=== PATIENT | female | born 1985 | race Caucasian/White ===

== ENCOUNTER 2016-12-12 14:40 | Emergency (ER) | payer OTHER ==
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
[~2016-12-12 14:40] MED LIST: IMODIUM MS REL1 EAC1 PO
[2017-02-26] MEDS ORDERED: TRAMADOL HCL50 M1 PO (09:35)
[2017-02-26] MEDS ORDERED: ONDANSETRON ODT4 MG PO (09:35)
[2017-02-26] MEDS ORDERED: CARAFATE PO (09:36)
[2017-02-26] MEDS ORDERED: PANTOPRAZOLE SO40 MG PO (10:20)
== END 2016-12-12 16:05 | disposition home or self-care (01) ==
LOC: CFTX 14:40
DX: S02.2XXA Fracture of nasal bones, initial encounter for closed fracture (principal); S16.1XXA Strain of muscle, fascia and tendon at neck level, initial encounter; F41.9 Anxiety disorder, unspecified; F17.200 Nicotine dependence, unspecified, uncomplicated; W22.8XXA Striking against or struck by other objects, initial encounter; Y92.009 Unspecified place in unspecified non-institutional (private) residence as the place of occurrence of the external cause
CPT/HCPCS: 70486; 72040; 84703; 99284

== ENCOUNTER 2017-01-04 17:13 | Emergency (ER) | payer OTHER ==
--- NOTE | ~2017-01-04 | CR20 ---
[facility] A Service of [facility] RADIOLOGY TEXT RESULTS PATIENT: ZULEYMA HERNANDEZ LOCATION: [facility] : 85 UNIT #: [id number] AGE: [address]: Anna Doan APRN SEX: F ORDER DR: [id number] [facility] [address] [place], [place] [address] [id number] E MR#: [id number] Acc #: [id number] NAME: ZULEYMA HERNANDEZ : 1985 SEX: F STUDY DATE/TIME: 01/04/2017 17:27 UNIT: [place] ROOM: STUDY DESCRIPTION: CR Ankle Min 3 Views Lt Attending Physician: Anna Doan A.P.R.N. Ordering Physician: Ed Doctor [id number] [facility] Primary Care Physician: Primary Care Physician No MEDICAL IMAGING REPORT This report is preliminary unless electronic signature is present EXAM Left ankle 3 views HISTORY Pain, swelling. Fell through porch steps. COMPARISON Left ankle films 07/17/2016 FINDINGS Three views of the left ankle demonstrates no acute fracture or dislocation. No significant arthritic or inflammatory change. Benign eccentric bone lesion is seen in the posterior lateral aspect of the distal tibia, unchanged from prior studies probably represents fibrous cortical defect. There is soft tissue swelling anterior aspect of the lower leg. IMPRESSION 1. Soft tissue swelling. No visible fracture. 2. Stable benign appearing bone lesion distal tibia probably represents old fibrous cortical defect. Dictated by... Mary Solis M.D. THIS IS AN ELECTRONICALLY VERIFIED REPORT Mary Solis M.D. at 01/05/2017 10:05 AM PEDRO/hillary TD: 01/05/2017 08:40 JOB #: [id number] [facility] A Service [facility] RADIOLOGY TEXT RESULTS PATIENT: ZULEYMA HERNANDEZ LOCATION: [facility] : 85 UNIT #: [id number] AGE: [address]: Anna Doan APRN SEX: F ORDER DR: MEDICAL IMAGING REPORT Page 1 of 1 COPY
--- NOTE | ~2017-01-04 | CR126 ---
[facility] A Service of [facility] RADIOLOGY TEXT RESULTS PATIENT: ZULEYMA HERNANDEZ LOCATION: [facility] : 85 UNIT #: [id number] AGE: [address]: Anna Doan APRN SEX: F ORDER DR: [id number] [facility] [address] [place], [place] [address] [id number] E MR#: [id number] Acc #: [id number] NAME: ZULEYMA HERNANDEZ : 1985 SEX: F STUDY DATE/TIME: 01/04/2017 17:29 UNIT: [facility] ROOM: STUDY DESCRIPTION: CR Foot Complete Min 3 View Lt Attending Physician: Anna Doan A.P.R.N. Ordering Physician: Laron Washington M.D. Primary Care Physician: Primary Care Physician No MEDICAL IMAGING REPORT This report is preliminary unless electronic signature is present EXAM Left foot 3 views HISTORY Foot pain and swelling and numbness after injury and fall today. FINDINGS 3 views of the left foot demonstrate satisfactory bone alignment. No fracture, joint space narrowing or dislocation. No opaque soft tissue foreign body. Well-marginated benign-appearing sclerotic lesion along the lateral margin of the distal tibial metaphysis is stable compared to 07/17/2016 and appears benign. IMPRESSION No acute finding. No fracture. Dictated by... Nahum Castelan M.D. THIS IS AN ELECTRONICALLY VERIFIED REPORT Nahum Castelan M.D. at 01/05/2017 3:03 PM ARACELI/pily TD: 01/05/2017 08:57 JOB #: [id number] MEDICAL IMAGING REPORT Page 1 of 1 COPY
[2017-02-26] MEDS ORDERED: TRAMADOL HCL50 M1 PO (09:35)
[2017-02-26] MEDS ORDERED: ONDANSETRON ODT4 MG PO (09:35)
[2017-02-26] MEDS ORDERED: CARAFATE PO (09:36)
[2017-02-26] MEDS ORDERED: PANTOPRAZOLE SO40 MG PO (10:20)
== END 2017-01-04 18:41 | disposition home or self-care (01) ==
LOC: CED 17:13
DX: S93.402A Sprain of unspecified ligament of left ankle, initial encounter (principal); S93.602A Unspecified sprain of left foot, initial encounter; F41.9 Anxiety disorder, unspecified; F17.210 Nicotine dependence, cigarettes, uncomplicated; W13.8XXA Fall from, out of or through other building or structure, initial encounter; Y92.009 Unspecified place in unspecified non-institutional (private) residence as the place of occurrence of the external cause
CPT/HCPCS: 29540; 73610; 73630; 99283

== ENCOUNTER 2017-01-24 12:36 | Emergency (ER) | payer OTHER ==
--- NOTE | ~2017-01-24 | CR63 ---
[facility] A Service of [facility] & [facility] RADIOLOGY TEXT RESULTS PATIENT: ZULEYMA HERNANDEZ LOCATION: [facility] : 85 UNIT #: [id number] AGE: [address]: Rohit Gage SEX: F ORDER DR: [id number] [facility] [address] [place], [place] [address] [id number] E MR#: [id number] Acc #: [id number] NAME: ZULEYMA HERNANDEZ : 1985 SEX: F STUDY DATE/TIME: 01/24/2017 12:45 UNIT: [facility] ROOM: STUDY DESCRIPTION: CR Chest 2 View Attending Physician: Rohit Gage Ordering Physician: Rohit Gage Primary Care Physician: Primary Care Physician No MEDICAL IMAGING REPORT This report is preliminary unless electronic signature is present EXAM 2 view chest 01/24/2017 HISTORY Chest pain status post fall last night. COMPARISON Chest 11/08/2016. FINDINGS 2 views of the chest demonstrate clear lungs. No pleural effusion or pneumothorax. Heart size and mediastinum are normal. Pulmonary vasculature normal. IMPRESSION No acute cardiopulmonary findings. Dictated by... Andre Alexander M.D. THIS IS AN ELECTRONICALLY VERIFIED REPORT Andre Alexander M.D. at 01/25/2017 9:07 AM SUMAYA/pily TD: 01/25/2017 08:11 JOB #: [id number] MEDICAL IMAGING REPORT Page 1 of 1 COPY
--- NOTE | ~2017-01-24 | CR169 ---
[facility] A Service of [facility] RADIOLOGY TEXT RESULTS PATIENT: ZULEYMA HERNANDEZ LOCATION: [facility] : 85 UNIT #: [id number] AGE: [address]: Rohit Gage SEX: F ORDER DR: [id number] [facility] [address] [place], [place] [address] [id number] E MR#: [id number] Acc #: [id number] NAME: ZULEYMA HERNANDEZ : 1985 SEX: F STUDY DATE/TIME: 01/24/2017 12:45 UNIT: [facility] ROOM: STUDY DESCRIPTION: CR Knee 2 Views Lt Attending Physician: Rohit Gage Ordering Physician: Rohit Gage Primary Care Physician: Primary Care Physician No MEDICAL IMAGING REPORT This report is preliminary unless electronic signature is present EXAM Left knee 01/24/2017 HISTORY Left knee pain status post fall last night. COMPARISON None. FINDINGS 2 views of the left knee demonstrate no acute fracture or dislocation. No joint effusion. Joint spaces are normal. Soft tissues are unremarkable. IMPRESSION Negative left knee. Dictated by... Andre Alexander M.D. THIS IS AN ELECTRONICALLY VERIFIED REPORT Andre Alexander M.D. at 01/25/2017 9:07 AM SUMAYA/pily TD: 01/25/2017 08:12 JOB #: [id number] MEDICAL IMAGING REPORT Page 1 of 1 COPY
--- NOTE | ~2017-01-24 | CR150 ---
[facility] A Service of [facility] & [facility] RADIOLOGY TEXT RESULTS PATIENT: ZULEYMA HERNANDEZ LOCATION: [facility] : 85 UNIT #: [id number] AGE: [address]: Rohit Gage SEX: F ORDER DR: [id number] [facility] [address] [place], [place] [address] [id number] E MR#: [id number] Acc #: [id number] NAME: ZULEYMA HERNANDEZ : 1985 SEX: F STUDY DATE/TIME: 01/24/2017 12:45 UNIT: [facility] ROOM: STUDY DESCRIPTION: CR Hip Min 2 Views Lt Attending Physician: Rohit Gage Ordering Physician: Rohit Gage Primary Care Physician: Primary Care Physician No MEDICAL IMAGING REPORT This report is preliminary unless electronic signature is present EXAM Left hip 01/24/2017 HISTORY Left hip pain status post fall last night. COMPARISON Pelvis 08/09/2016. FINDINGS 2 views of the left hip demonstrate no acute fracture or dislocation. Bony pelvis intact. Sacrum and SI joints intact. Soft tissues are unremarkable. IMPRESSION Negative left hip. Dictated by... Andre Alexander M.D. THIS IS AN ELECTRONICALLY VERIFIED REPORT Andre Alexander M.D. at 01/25/2017 9:08 AM SUMAYA/pily TD: 01/25/2017 08:14 JOB #: [id number] MEDICAL IMAGING REPORT Page 1 of 1 COPY
[2017-02-26] MEDS ORDERED: TRAMADOL HCL50 M1 PO (09:35)
[2017-02-26] MEDS ORDERED: ONDANSETRON ODT4 MG PO (09:35)
[2017-02-26] MEDS ORDERED: CARAFATE PO (09:36)
[2017-02-26] MEDS ORDERED: PANTOPRAZOLE SO40 MG PO (10:20)
== END 2017-01-24 13:44 | disposition home or self-care (01) ==
LOC: CFTX 12:36
DX: S86.912A Strain of unspecified muscle(s) and tendon(s) at lower leg level, left leg, initial encounter (principal); R05 Cough; F17.210 Nicotine dependence, cigarettes, uncomplicated; Z86.79 Personal history of other diseases of the circulatory system; Z90.49 Acquired absence of other specified parts of digestive tract; W10.9XXA Fall (on) (from) unspecified stairs and steps, initial encounter; Y92.89 Other specified places as the place of occurrence of the external cause
CPT/HCPCS: 29530; 71020; 73502; 73560; 96372; 99284; J1885

== ENCOUNTER 2017-02-08 09:30 | Emergency (ER) | payer OTHER ==
--- NOTE | ~2017-02-08 | CT2 ---
[facility] A Service of [facility] RADIOLOGY TEXT RESULTS PATIENT: ZULEYMA HERNANDEZ LOCATION: [facility] : 85 UNIT #: [id number] AGE: [address]: Margret Osullivan SEX: F ORDER DR: [id number] [facility] [address] [place], [place] [address] [id number] E MR#: [id number] Acc #: [id number] NAME: ZULEYMA HERNANDEZ : 1985 SEX: F STUDY DATE/TIME: 02/08/2017 10:45 UNIT: [facility] ROOM: STUDY DESCRIPTION: CT Abd and Pelv W Cont Attending Physician: Margret Osullivan P.A.-C. Ordering Physician: Margret Osullivan P.A.-C. Primary Care Physician: Primary Care Physician No MEDICAL IMAGING REPORT This report is preliminary unless electronic signature is present EXAM CT of the abdomen and pelvis with contrast, 02/08/[address] of the abdomen and pelvis without contrast, 11/08/2016 HISTORY Left-sided abdominal and rib pain for 3 years. Blood in stool for [address] exam was performed with one or more of the following radiation dose reduction techniques: automatic exposure control, adjustment of mA and/or kV according to patient size, and iterative reconstruction. FINDINGS CT of the abdomen and pelvis were obtained with IV contrast in the axial plane followed by sagittal and coronal reformats. LOWER CHEST: Lungs are well aerated. Heart is of normal size. ABDOMEN: Liver, spleen, pancreas, adrenal glands and kidneys do not demonstrate any significant abnormality. No evidence of bowel obstruction, free fluid or free air intraperitoneally. Well defined appendix is difficult to visualize. No obvious signs of acute inflammation is seen in the right lower quadrant of the abdomen. PELVIS: 1.5 cm hypodense lesion is noted in the right adnexa with smaller lesions bilaterally. They are probably ovarian follicles/small cysts. Uterus is age appropriate. Urinary bladder and bowel loops do not demonstrate any significant acute abnormality. IMPRESSION [facility] A Service of [facility] RADIOLOGY TEXT RESULTS PATIENT: ZULEYMA HERNANDEZ LOCATION: [facility] : 85 UNIT #: [id number] AGE: [address]: Margret Osullivan SEX: F ORDER DR: 1. No acute abnormality in the abdomen or pelvis. 2. Status post cholecystectomy. Dictated by... Chela Velazquez M.D. THIS IS AN ELECTRONICALLY VERIFIED REPORT Chela Velazquez M.D. at 02/09/2017 3:20 PM CPR/hillary TD: 02/08/2017 13:45 JOB #: [id number] MEDICAL IMAGING REPORT Page 1 of 1 COPY
[2017-02-08 09:48] LABS: BASOPHIL% 0.4 % (0-2.5); EOSINOPHIL# 0.3 X10e3 (0-0.7); EOSINOPHIL% 4.5 % (0.0-7.0); HEMATOCRIT 43.3 % (35.0-45.0); HEMOGLOBIN 14.3 gm/dL (12.0-16.0); LYMPHOCYTE% 28.3 % (17.0-45.0); MEAN CELL VOLUME 96.3 FL (83-96); MEAN CORPUSCULAR HEMOGLOBIN 31.9 PG (28-34); MEAN CORPUSCULAR HGB CONC 33.2 g/dL (30-36); MEAN PLATELET VOLUME 9.9 FL (6.5-11.5); MONOCYTE# 0.5 X10e3 (0-1.0); MONOCYTE% 7.3 % (3.0-12.0); NEUTROPHIL# 4.1 X10e3 (1.5-7.1); NEUTROPHIL% 59.5 % (40-75); PLATELET COUNT 164 X10e3 (140-420); RED BLOOD COUNT 4.49 X10e (3.90-5.30); RED CELL DISTRIBUTION WIDTH 13.2 % (11.0-15.5)
[2017-02-08 09:49] LABS: URINE SOURCE CLEAN CATCH
[2017-02-08 09:50] LABS: URINE APPEARANCE CLEAR; URINE BILIRUBIN NEG (NEG); URINE BLOOD NEG (NEG); URINE COLOR YELLOW; URINE GLUCOSE NEG (NEG); URINE KETONE NEG (NEG); URINE LEUKOCYTE ESTERASE NEG (NEG); URINE NITRATE NEG (NEG); URINE PROTEIN NEG (NEG); URINE SPECIFIC GRAVITY 1.024 (1.003-1.035)
[2017-02-08 09:50] LABS: DIFF IND NO
[2017-02-08 09:52] LABS: CULTURE INDICATED? NO
[2017-02-08 10:00] LABS: AMPHETAMINE NEG (NEG); BARBITURATES NEG (NEG); BENZODIAZEPINES NEG (NEG); COCAINE NEG (NEG); MARIJUANA POS (NEG); OPIATES NEG (NEG); TRICYCLIC ANTIDEPRESSANTS NEG (NEG); U METHADONE NEG (NEG)
[2017-02-08 10:19] LABS: ALBUMIN SERUM 4.3 g/dL (3.5-5.0); BILIRUBIN, DIRECT 0.1 mg/dL (0.0-0.2); BILIRUBIN,TOTAL 1.1 mg/dL (0.2-2.0); BUN/CREATININE RATIO 15.71; CALCIUM SERUM 8.8 mg/dL (8.4-10.2); CREATININE SERUM 0.7 mg/dL (0.6-1.4); GLOM FILT RATE Estimated 115.5 mL/min (>60); POTASSIUM 3.4 mmol/L (3.5-5.1); PROTEIN TOTAL SERUM 7.1 g/dL (6.0-8.3)
[2017-02-26] MEDS ORDERED: TRAMADOL HCL50 M1 PO (09:35)
[2017-02-26] MEDS ORDERED: ONDANSETRON ODT4 MG PO (09:35)
[2017-02-26] MEDS ORDERED: CARAFATE PO (09:36)
[2017-02-26] MEDS ORDERED: PANTOPRAZOLE SO40 MG PO (10:20)
== END 2017-02-08 12:06 | disposition home or self-care (01) ==
LOC: CED 09:30
PROVIDERS: Physician Assistant
DX: R10.9 Unspecified abdominal pain (principal); R19.7 Diarrhea, unspecified; Z79.899 Other long term (current) drug therapy
CPT/HCPCS: 36415; 74177; 80048; 80076; 80307; 81003; 83690; 84703; 85025; 96374; 99284; J1885; Q9967

== ENCOUNTER 2017-02-15 13:00 | Emergency (ER) | payer OTHER ==
[2017-02-26] MEDS ORDERED: TRAMADOL HCL50 M1 PO (09:35)
[2017-02-26] MEDS ORDERED: ONDANSETRON ODT4 MG PO (09:35)
[2017-02-26] MEDS ORDERED: CARAFATE PO (09:36)
[2017-02-26] MEDS ORDERED: PANTOPRAZOLE SO40 MG PO (10:20)
== END 2017-02-15 14:00 | disposition home or self-care (01) ==
LOC: CED 13:00
DX: Z53.21 Procedure and treatment not carried out due to patient leaving prior to being seen by health care provider (principal)

== ENCOUNTER 2017-02-25 13:42 | Emergency (ER) | payer OTHER ==
--- NOTE | ~2017-02-25 | EKG ---
PATIENT: ZULEYMA HERNANDEZ UNIT #: [id number] Ventricular Rate: 60 BPM Atrial Rate: 60 BPM P-R Interval: 130 ms QRS Duration: 98 ms Q-T Interval: 422 ms QTC Calculation(Bezet): 422 ms P [place]: 57 degrees Calculated R [place]: 82 degrees Calculated T [place]: 3 degrees Diagnosis Line: Normal sinus rhythm Diagnosis Line: Normal ECG Diagnosis Line: When compared with ECG of 13-SEP-2016 05:57, Diagnosis Line: T wave inversion now evident in Inferior leads Diagnosis Line: Confirmed by GHASSAN ROBLES MD ([id number]) on 02/26/2017 Diagnosis Line: 10:37:59 AM INTERPRETING MD: MARGARET OBREGON
--- NOTE | ~2017-02-25 | CR72 ---
[facility] A Service of [facility] & [facility] RADIOLOGY TEXT RESULTS PATIENT: ZULEYMA HERNANDEZ LOCATION: [facility] : 85 UNIT #: [id number] AGE: [address]: Adrian Cordoba MD SEX: F ORDER DR: [id number] [facility] [address] [place], [place] [address] [id number] MR#: [id number] Acc #: [id number] NAME: ZULEYMA HERNANDEZ : 1985 SEX: F STUDY DATE/TIME: 02/25/2017 14:33 UNIT: [facility] ROOM: STUDY DESCRIPTION: CR Chest Single View Portable Attending Physician: Ghassan Cordoba M.D. Ordering Physician: Ed Doc Tony Morgan Primary Care Physician: No Primary Care Physician MEDICAL IMAGING REPORT This report is preliminary unless electronic signature is present EXAM Portable chest. HISTORY Left-sided chest pain and short of breath onset today. TECHNIQUE Single view of the chest was obtained and compared with 01/24/2017. FINDINGS A single AP portable view of the chest shows both lungs to be clear. The heart is normal in size. The mediastinal contour is normal. No significant bone abnormalities are seen. IMPRESSION Normal portable chest. Dictated by... Eddie Mcbride M.D. THIS IS AN ELECTRONICALLY VERIFIED REPORT Eddie Mcbride M.D. at 02/25/2017 6:21 PM CALVIN/tammie TD: 02/25/2017 14:59 JOB #: [id number] MEDICAL IMAGING REPORT Page 1 of 1 COPY
[2017-02-25 14:54] LABS: BASOPHIL% 0.4 % (0-2.5); EOSINOPHIL# 0.1 X10e3 (0-0.7); EOSINOPHIL% 1.4 % (0.0-7.0); HEMATOCRIT 41.4 % (35.0-45.0); HEMOGLOBIN 13.7 gm/dL (12.0-16.0); LYMPHOCYTE# 2.1 X10e3 (1.0-3.5); LYMPHOCYTE% 44.2 % (17.0-45.0); MEAN CELL VOLUME 95.1 FL (83-96); MEAN CORPUSCULAR HEMOGLOBIN 31.4 PG (28-34); MONOCYTE# 0.5 X10e3 (0-1.0); MONOCYTE% 9.4 % (3.0-12.0); NEUTROPHIL# 2.2 X10e3 (1.5-7.1); NEUTROPHIL% 44.6 % (40-75); PLATELET COUNT 164 X10e3 (140-420); RED BLOOD COUNT 4.35 X10e (3.90-5.30); RED CELL DISTRIBUTION WIDTH 12.7 % (11.0-15.5); WHITE BLOOD COUNT 4.8 X10e3 (4.0-10.5)
[2017-02-25 14:55] LABS: DIFF IND NO
[2017-02-25 15:03] LABS: INR 1.1; PARTIAL THROMBOPLASTIN TIME 26.8 SECONDS (23.5-31.3); PROTHROMBIN TIME (PATIENT) 11.9 SECONDS (9.6-11.5)
[2017-02-25 15:14] LABS: ALBUMIN SERUM 4.1 g/dL (3.5-5.0); BILIRUBIN, DIRECT 0.2 mg/dL (0.0-0.2); BILIRUBIN,INDIRECT 0.8 mg/dL (0.0-0.9); CALCIUM SERUM 8.6 mg/dL (8.4-10.2); CREATININE SERUM 0.8 mg/dL (0.6-1.4); GLOM FILT RATE Estimated 98.3 mL/min (>60); POTASSIUM 3.2 mmol/L (3.5-5.1); PROTEIN TOTAL SERUM 6.7 g/dL (6.0-8.3)
[2017-02-25 15:40] LABS: POC - CKMB <1.0 ng/mL (0.0-7.9); POC - TROPONIN <0.05 ng/mL (<=0.05)
[2017-02-26] MEDS ORDERED: ONDANSETRON ODT4 MG PO (09:35)
[2017-02-26] MEDS ORDERED: TRAMADOL HCL50 M1 PO (09:35)
[2017-02-26] MEDS ORDERED: CARAFATE PO (09:36)
[2017-02-26] MEDS ORDERED: PANTOPRAZOLE SO40 MG PO (10:20)
== END 2017-02-25 18:14 | disposition home or self-care (01) ==
LOC: CED 13:42
PROVIDERS: Emergency Medicine
DX: R07.89 Other chest pain (principal); R10.12 Left upper quadrant pain; Z90.49 Acquired absence of other specified parts of digestive tract; F17.210 Nicotine dependence, cigarettes, uncomplicated
CPT/HCPCS: 36415; 71010; 80048; 80076; 82553; 84484; 84703; 85025; 85379; 85610; 85730; 93005; 96374; 96375; 99284; J1885; J2405

== ENCOUNTER → 2017-02-26 | Day surgery (SDC) | payer OTHER ==
[~2017-02-26] MED LIST changes: +CARAFATE PO; +ONDANSETRON ODT4 MG PO; +PANTOPRAZOLE SO40 MG PO; +TRAMADOL HCL50 M1 PO
--- NOTE | ~2017-02-26 | OR ---
Unit #: [id number] #: [id number] Patient: ZULEYMA HERNANDEZ [id number] [address] [address] [id number] O MR#: [id number] NAME: ZULEYMA HERNANDEZ ROOM: Date of Procedure: 02/26/2017 Admission Date: 02/26/2017 Surgeon: Sukhjinder Barragan M.D. : 1985 Attending Physician: Sukhjinder Barragan M.D. PROCEDURE OPERATIVE NOTE PROCEDURE EGD with biopsy. INDICATION Patient with significant upper abdominal pain, nausea, and vomiting mostly on the left side. MEDICATION Monitored anesthesia. POSTOPERATIVE FINDINGS 1. Normal esophagus. 2. Diffuse gastritis, biopsies taken. 3. Normal duodenum to distal duodenum. PLAN Treat for H. pylori positive. Continue PPI therapy. DESCRIPTION OF PROCEDURE The patient was explained the procedure, risks, and benefits, along with the risks and benefits of anesthesia. She was brought to the endoscopy room, and propofol anesthesia was given. A bite block was placed. The scope was passed down the mouth into the esophagus, stomach, duodenum, and distal duodenum with findings as described. Biopsies were taken. Gently I pulled it out of patient's mouth. She tolerated it well. Dictated by... Tony Beverly/filemon TD: 02/26/2017 14:41 JOB #: [id number] CC: Samuel Wheatley M.D. Unit #: [id number] #: [id number] Patient: ZULEYMA HERNANDEZ PROCEDURE OPERATIVE NOTE Page 1 of 1 X Sukhjinder Barragan MD X PROCEDURE OPERATIVE NOTE
== END | disposition home or self-care (01) ==
LOC: COPS 08:45
DX: K29.50 Unspecified chronic gastritis without bleeding (principal); F41.9 Anxiety disorder, unspecified; F17.210 Nicotine dependence, cigarettes, uncomplicated; Z86.73 Personal history of transient ischemic attack (TIA), and cerebral infarction without residual deficits; Z87.19 Personal history of other diseases of the digestive system; Z79.899 Other long term (current) drug therapy; Z79.891 Long term (current) use of opiate analgesic; Z90.49 Acquired absence of other specified parts of digestive tract; Z98.890 Other specified postprocedural states
CPT/HCPCS: 84703; 88305; 88312; J2250

== ENCOUNTER 2017-03-07 13:41 | Emergency (ER) | payer OTHER | END 2017-03-07 15:25 | disposition home or self-care (01) | LOC: CED 13:41 | DX: K04.7 Periapical abscess without sinus (principal); K21.9 Gastro-esophageal reflux disease without esophagitis; F17.210 Nicotine dependence, cigarettes, uncomplicated | CPT/HCPCS: 99283 ==

== ENCOUNTER 2017-03-22 00:45 | Emergency (ER) | payer OTHER ==
[2017-03-22 03:24] LABS: BASOPHIL% 0.3 % (0-2.5); EOSINOPHIL# 0.1 X10e3 (0-0.7); EOSINOPHIL% 1.2 % (0.0-7.0); HEMATOCRIT 39.5 % (35.0-45.0); HEMOGLOBIN 13.4 gm/dL (12.0-16.0); LYMPHOCYTE# 2.3 X10e3 (1.0-3.5); LYMPHOCYTE% 27.8 % (17.0-45.0); MEAN CELL VOLUME 93.6 FL (83-96); MEAN CORPUSCULAR HEMOGLOBIN 31.8 PG (28-34); MEAN CORPUSCULAR HGB CONC 33.9 g/dL (30-36); MEAN PLATELET VOLUME 9.3 FL (6.5-11.5); MONOCYTE# 0.6 X10e3 (0-1.0); NEUTROPHIL# 5.2 X10e3 (1.5-7.1); NEUTROPHIL% 63.7 % (40-75); PLATELET COUNT 154 X10e3 (140-420); RED BLOOD COUNT 4.22 X10e (3.90-5.30); RED CELL DISTRIBUTION WIDTH 12.1 % (11.0-15.5); WHITE BLOOD COUNT 8.2 X10e3 (4.0-10.5)
[2017-03-22 03:28] LABS: DIFF IND NO
[2017-03-22 03:40] LABS: BUN/CREATININE RATIO 22.85; CALCIUM SERUM 8.7 mg/dL (8.4-10.2); CREATININE SERUM 0.7 mg/dL (0.6-1.4); GLOM FILT RATE Estimated 115.5 mL/min (>60); POTASSIUM 3.6 mmol/L (3.5-5.1)
== END 2017-03-22 04:00 | disposition home or self-care (01) ==
LOC: CED 00:45
PROVIDERS: Physician Assistant
DX: K04.7 Periapical abscess without sinus (principal); F17.210 Nicotine dependence, cigarettes, uncomplicated; Z79.899 Other long term (current) drug therapy
CPT/HCPCS: 36415; 80048; 85025; 96374; 99284; J2405

== ENCOUNTER 2017-06-04 17:42 | Emergency (ER) | payer OTHER ==
[~2017-06-04] VITALS: Ht 170.2 cm; Wt 52.6 kg
--- NOTE | ~2017-06-04 | EKG ---
PATIENT: ZULEYMA HERNANDEZ UNIT #: [id number] Ventricular Rate: 66 BPM Atrial Rate: 66 BPM P-R Interval: 122 ms QRS Duration: 96 ms Q-T Interval: 418 ms QTC Calculation(Bezet): 438 ms P [place]: 82 degrees Calculated R [place]: 91 degrees Calculated T [place]: 67 degrees Diagnosis Line: Normal sinus rhythm Diagnosis Line: Rightward axis Diagnosis Line: RSR' or QR pattern in V1 suggests right Diagnosis Line: ventricular conduction delay Diagnosis Line: Abnormal ECG Diagnosis Line: When compared with ECG of 25-FEB-2017 14:27, Diagnosis Line: RSR' or QR pattern in V1 suggests right Diagnosis Line: ventricular conduction delay is now Present Diagnosis Line: Confirmed by JERSON ESTES MD ([id number]) on 06/05/2017 Diagnosis Line: 5:09:32 PM INTERPRETING MD: FRANKLYN OBREGON
--- NOTE | ~2017-06-04 | CR243 ---
[facility] A Service of [facility] & [facility] RADIOLOGY TEXT RESULTS PATIENT: ZULEYMA TURCIOS LOCATION: [facility] : 85 UNIT #: [id number] AGE: [address]: Dany Goode DO SEX: F ORDER DR: [id number] [facility] [address] [place], [place] [address] [id number] E MR#: [id number] Acc #: [id number] NAME: ZULEYMA TURCIOS : 1985 SEX: F STUDY DATE/TIME: 06/04/2017 22:26 UNIT: [facility] ROOM: STUDY DESCRIPTION: CR Thoracic Spine 3 Views Attending Physician: Dany Goode D.O. Ordering Physician: Dany Goode D.O. Primary Care Physician: [facility], [facility]. MEDICAL IMAGING REPORT This report is preliminary unless electronic signature is present EXAM Thoracic spine, 3 views, 06/04/2017. HISTORY Thoracic back pain upper and mid back pain, status post fall today at [employer]. FINDINGS AP and lateral examination of the dorsal segment shows normal mineralization and a satisfactory anatomical dorsal kyphosis. All body heights, interspaces, and posterior elements are normal anatomically without any indication of malignancy, trauma, unusual paraspinal soft tissue density mass, or congenital defect. IMPRESSION Normal thoracic spine. Dictated by... Lloyd Hawk M.D. THIS IS AN ELECTRONICALLY VERIFIED REPORT Lloyd Hawk M.D. at 06/05/2017 4:04 PM SABRINA/tammie TD: 06/05/2017 13:37 JOB #: [id number] MEDICAL IMAGING REPORT Page 1 of 1 COPY
--- NOTE | ~2017-06-04 | CR181 ---
[facility] A Service of [facility] & [facility] RADIOLOGY TEXT RESULTS PATIENT: ZULEYMA TURCIOS LOCATION: [facility] : 85 UNIT #: [id number] AGE: [address]: Dany Goode DO SEX: F ORDER DR: [id number] [facility] [address] [place], [place] [address] [id number] E MR#: [id number] Acc #: [id number] NAME: ZULEYMA TURCIOS : 1985 SEX: F STUDY DATE/TIME: 06/04/2017 22:23 UNIT: [facility] ROOM: STUDY DESCRIPTION: CR Lumbar Spine 2 or 3 Views Attending Physician: Dany Goode D.O. Ordering Physician: Dany Goode D.O. Primary Care Physician: [facility] MEDICAL IMAGING REPORT This report is preliminary unless electronic signature is present EXAM Lumbar spine, 4 views, 06/04/2017. HISTORY Low back pain, status post fall today at [facility]. Four views of the lumbar segment show good mineralization of both anterior and posterior elements. They are all anatomically normal without indication of fracture, dislocation, or malignant change of a sclerotic or lytic type. There is no congenital defect noted. The sacroiliac joints are normal. IMPRESSION Normal lumbar spine. Dictated by... Lloyd Hawk M.D. THIS IS AN ELECTRONICALLY VERIFIED REPORT Lloyd Hawk M.D. at 06/08/2017 7:32 AM SABRINA/estefani TD: 06/05/2017 12:47 JOB #: [id number] MEDICAL IMAGING REPORT Page 1 of 1 COPY
--- NOTE | ~2017-06-04 | CR72 ---
[facility] A Service of [facility] & [facility] RADIOLOGY TEXT RESULTS PATIENT: ZULEYMA TURCIOS LOCATION: [facility] : 85 UNIT #: [id number] AGE: [address]: Dany Goode DO SEX: F ORDER DR: [id number] [facility] [address] [place], [place] [address] [id number] E MR#: [id number] Acc #: [id number] NAME: ZULEYMA TURCIOS : 1985 SEX: F STUDY DATE/TIME: 06/04/2017 22:28 UNIT: [facility] ROOM: STUDY DESCRIPTION: CR Chest Single View Portable Attending Physician: Dany Goode D.O. Ordering Physician: Dany Goode D.O. Primary Care Physician: [facility], [facility]. MEDICAL IMAGING REPORT This report is preliminary unless electronic signature is present EXAM Chest x-ray, 06/04/2017. HISTORY 31-year-old female in the ED with chest pain and back pain after a fall at [facility] today prior to arrival. TECHNIQUE AP portable chest x-ray. FINDINGS The examination is negative. The lungs are expanded and clear. No visible pneumothorax, pulmonary infiltrate or pleural effusion. Cardiomediastinal silhouette is normal. No change since 02/25/2017. IMPRESSION Negative chest. No change since 02/25/2017. Dictated by... Pillo Douglas M.D. THIS IS AN ELECTRONICALLY VERIFIED REPORT Pillo Douglas M.D. at 06/08/2017 11:06 PM PALAK/estefani TD: 06/05/2017 12:51 JOB #: [id number] MEDICAL IMAGING REPORT Page 1 of 1 COPY
[2017-06-04 19:19] LABS: BASOPHIL% 0.4 % (0-2.5); EOSINOPHIL# 0.5 X10e3 (0-0.7); EOSINOPHIL% 6.1 % (0.0-7.0); HEMATOCRIT 42.9 % (35.0-45.0); HEMOGLOBIN 14.5 gm/dL (12.0-16.0); LYMPHOCYTE# 1.8 X10e3 (1.0-3.5); LYMPHOCYTE% 23.3 % (17.0-45.0); MEAN CELL VOLUME 95.8 FL (83-96); MEAN CORPUSCULAR HEMOGLOBIN 32.4 PG (28-34); MEAN CORPUSCULAR HGB CONC 33.8 g/dL (30-36); MEAN PLATELET VOLUME 9.4 FL (6.5-11.5); MONOCYTE# 0.4 X10e3 (0-1.0); MONOCYTE% 4.5 % (3.0-12.0); NEUTROPHIL# 5.2 X10e3 (1.5-7.1); NEUTROPHIL% 65.7 % (40-75); PLATELET COUNT 177 X10e3 (140-420); RED BLOOD COUNT 4.48 X10e (3.90-5.30); RED CELL DISTRIBUTION WIDTH 13.1 % (11.0-15.5); WHITE BLOOD COUNT 7.9 X10e3 (4.0-10.5)
[2017-06-04 19:21] LABS: DIFF IND NO
[2017-06-04 19:32] LABS: POC - CKMB <1.0 ng/mL (0.0-7.9); POC - TROPONIN <0.05 ng/mL (<=0.05)
[2017-06-04 19:37] LABS: ALBUMIN SERUM 4.3 g/dL (3.5-5.0); BILIRUBIN, DIRECT 0.2 mg/dL (0.0-0.2); BILIRUBIN,INDIRECT 0.3 mg/dL (0.0-0.9); BILIRUBIN,TOTAL 0.5 mg/dL (0.2-2.0); CALCIUM SERUM 8.9 mg/dL (8.4-10.2); CREATININE SERUM 0.8 mg/dL (0.6-1.4); GLOM FILT RATE Estimated 98.3 mL/min (>60); POTASSIUM 3.6 mmol/L (3.5-5.1); PROTEIN TOTAL SERUM 7.4 g/dL (6.0-8.3)
[2017-06-04 21:15] LABS: POC - CKMB <1.0 ng/mL (0.0-7.9); POC - TROPONIN <0.05 ng/mL (<=0.05)
== END 2017-06-05 02:15 | disposition left against medical advice (07) ==
LOC: CED 17:42
DX: R07.9 Chest pain, unspecified (principal); M54.9 Dorsalgia, unspecified; F41.9 Anxiety disorder, unspecified; Z90.49 Acquired absence of other specified parts of digestive tract; F17.200 Nicotine dependence, unspecified, uncomplicated; W19.XXXA Unspecified fall, initial encounter; Y92.9 Unspecified place or not applicable
CPT/HCPCS: 36415; 71010; 72072; 72100; 80048; 80076; 82553; 84484; 84703; 85025; 85379; 93005; 96374; 99285; J1885

== ENCOUNTER 2017-06-05 18:52 | Emergency (ER) | payer OTHER ==
[~2017-06-05] VITALS: Ht 170.2 cm; Wt 49.9 kg
--- NOTE | ~2017-06-05 | EKG ---
PATIENT: ZULEYMA TURCIOS UNIT #: [id number] Ventricular Rate: 78 BPM Atrial Rate: 78 BPM P-R Interval: 122 ms QRS Duration: 92 ms Q-T Interval: 390 ms QTC Calculation(Bezet): 444 ms P [place]: 80 degrees Calculated R [place]: 88 degrees Calculated T [place]: 55 degrees Diagnosis Line: Normal sinus rhythm Diagnosis Line: Possible Left atrial enlargement Diagnosis Line: Borderline ECG Diagnosis Line: Diagnosis Line: Confirmed by MASON LERMA MD ([id number]) on Diagnosis Line: 06/08/2017 4:40:18 PM INTERPRETING MD: GIANNA
[2017-06-05 20:31] LABS: BASOPHIL% 0.3 % (0-2.5); EOSINOPHIL# 0.5 X10e3 (0-0.7); EOSINOPHIL% 7.3 % (0.0-7.0); HEMATOCRIT 43.4 % (35.0-45.0); HEMOGLOBIN 14.5 gm/dL (12.0-16.0); LYMPHOCYTE# 2.8 X10e3 (1.0-3.5); LYMPHOCYTE% 37.9 % (17.0-45.0); MEAN CELL VOLUME 96.1 FL (83-96); MEAN CORPUSCULAR HEMOGLOBIN 32.1 PG (28-34); MEAN CORPUSCULAR HGB CONC 33.4 g/dL (30-36); MEAN PLATELET VOLUME 9.3 FL (6.5-11.5); MONOCYTE# 0.6 X10e3 (0-1.0); MONOCYTE% 7.5 % (3.0-12.0); NEUTROPHIL# 3.5 X10e3 (1.5-7.1); PLATELET COUNT 182 X10e3 (140-420); RED BLOOD COUNT 4.52 X10e (3.90-5.30); RED CELL DISTRIBUTION WIDTH 13.5 % (11.0-15.5); WHITE BLOOD COUNT 7.4 X10e3 (4.0-10.5)
[2017-06-05 20:32] LABS: DIFF IND NO
[2017-06-05 20:57] LABS: ALBUMIN SERUM 4.4 g/dL (3.5-5.0); BILIRUBIN, DIRECT 0.2 mg/dL (0.0-0.2); BILIRUBIN,INDIRECT 1.1 mg/dL (0.0-0.9); BILIRUBIN,TOTAL 1.3 mg/dL (0.2-2.0); BUN/CREATININE RATIO 11.11; CALCIUM SERUM 9.5 mg/dL (8.4-10.2); CREATININE SERUM 0.9 mg/dL (0.6-1.4); GLOM FILT RATE Estimated 85.3 mL/min (>60); POTASSIUM 3.7 mmol/L (3.5-5.1); PROTEIN TOTAL SERUM 7.6 g/dL (6.0-8.3)
[2017-06-05 20:58] LABS: POC - CKMB <1.0 ng/mL (0.0-7.9); POC - TROPONIN <0.05 ng/mL (<=0.05)
== END 2017-06-05 22:31 | disposition home or self-care (01) ==
LOC: CED 18:52
DX: R07.89 Other chest pain (principal); F41.9 Anxiety disorder, unspecified; F17.210 Nicotine dependence, cigarettes, uncomplicated; Z90.49 Acquired absence of other specified parts of digestive tract; Z79.899 Other long term (current) drug therapy
CPT/HCPCS: 36415; 80048; 80076; 82553; 84484; 85025; 93005; 99285